=== PATIENT | male | born 1975 | race Caucasian/White ===

== ENCOUNTER 2017-11-17 07:36 | Day surgery (SDC) | payer OTHER, SELFPAY ==
[2017-11-12 15:11] VITALS: BMI 24.0
[2017-11-17] VITALS (9 sets, daily range): BP systolic 113–131; BP diastolic 76–97; PULSE 69–84; RESP 10–16; TEMP 36–36.4; O2SAT 95–100; BMI 24.0
[2017-11-17] MEDS: LACTATED RINGERS 1,000 ML 42 ML IV (08:06)
[2017-11-17] MEDS: MIDAZOLAM 2 MG/2 ML VIAL IV (08:58)
--- NOTE | 2017-11-17 08:59 | PM.PREOP ---
Pre-operative Note Interval Note Pre-op Check: Yes History & Physical Reviewed by Physician and Yes Exam Performed Changes: No
[2017-11-17] MEDS: CEFAZOLIN 2 GM/100 ML FROZ.PIGGY IV (09:06)
--- NOTE | 2017-11-17 09:11 | SUR.PREOP ---
Block start time 0858[] . Monitoring initiated and maintained throughout procedure. Oxygen and medications given per anesthesiologist instructions. Patient remained stable throughout procedure, no adverse reactions noted. Block end time 0902 [].
--- NOTE | 2017-11-17 10:18 | SUR.OPER ---
Beach chair with Maquet shoulder positioner. Lower body on padded OR bed. Head in foam padded head cradle, secured with straps. Non-operative arm secured <90 degrees abduction. Pillow under knees. Safety belt at thigh. Cloth tape over blanket over lower legs.
[2017-11-17] MEDS: BUPIVACAINE 0.25% (PF) VIAL 30 ML INJ (10:31)
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
[2017-11-17] MEDS: fentaNYL 100 MCG/2 ML INJ 50 MCG IV ×2 (11:30→11:35)
[2017-11-17] MEDS: OXYCODONE/ACETAMINOPHEN 5/325 TABLET 1 TAB PO (11:55)
--- NOTE | 2017-11-17 12:29 | P.PCN_ITS ---
Procedures Date/Time Date of procedure: 11/17/17 Time of procedure: 09:02 Nerve Block Time out performed: Yes Local anesthetic used: other (15mL 0.5 opivacaine, 5mL 2* idocaine) Location of anesthetic used: interscalene Amount of anesthesia used (mL): 20 Nerve blocks: brachial plexus (interscalene) Procedure successful: Yes Patient tolerated procedure: well Complications: none Additional comments: Right Brachial plexus nerve block for post operative pain management. Risks and benefits discussed, including bleeding, infection, intravascular injection, nerve damage, block failure. Standard ASA monitors, NC O2. Pt supine. Chloroprep site preparation, sterile technique. Brachial plexus identified with US guidance, traced from supraclavicular to interscalene. 1mL 2% lidocaine skin wheal. 22g x 50mm Pajunk advanced with in- plane US guidance to brachial plexus. Negative aspiration. LA injected with intermittent negative aspiration. Good LA spread noted on US. No pain, no paraesthesia. Pt tolerated procedure well. Vital signs stable.
== END 2017-11-17 12:30 | disposition home or self-care (01) ==
PROVIDERS: Visit Provider Orthopaedic Surgery
PROC: (CPT 24341; principal; 2017-11-17 08:45)
PROC: (CPT 29805; 2017-11-17 08:45)
DX: S43.431A Superior glenoid labrum lesion of right shoulder, initial encounter (principal); M75.21 Bicipital tendinitis, right shoulder; G89.18 Other acute postprocedural pain; W51.XXXA Accidental striking against or bumped into by another person, initial encounter
CPT/HCPCS: 23430; 29822; 64450; J0690; J1100; J2250; J2405; J2704; J3010

== ENCOUNTER → 2020-06-26 12:54 | Outpatient (CLI) | payer OTHER, SELFPAY ==
--- NOTE | 2020-06-26 | DI.MRI.S_ITS ---
PROCEDURE: MR LOWER LEG LT WO CON COMPARISON: [facility], MR, MR ANKLE LT WO CON, 06/26/2020, 14:11. INDICATIONS: Pain in left ankle and posterior lower leg FINDINGS: No marrow signal intensity to suggest fracture or marrow contusion. The muscle signal intensity appears unremarkable. The vessels are within normal limits. There is mild prepatellar and superficial infrapatellar subcutaneous edema. There is also subcutaneous edema and superficial fascial fluid involving the mid anterior lower leg , for example image 12/8. This could represent soft tissue contusion IMPRESSION: Mid anterior lower leg soft tissue subcutaneous edema/contusion. No evidence of fracture seen. Dictated by: Sedrick Moreno M.D. on 06/26/2020 at 15:14 Approved by: Sedrick Moreno M.D. on 06/26/2020 at 15:29
--- NOTE | 2020-06-26 | DI.MRI.S_ITS ---
PROCEDURE: MR ANKLE LT WO CON INDICATIONS: Pain in left posterior leg to ankle joint TECHNIQUE: Noncontrast sagittal T1 spin echo and T2 fast spin echo with fat saturation, axial proton density fast spin echo and T2 fast spin echo with fat saturation, coronal T1 spin echo and T2 fast spin echo with fat saturation through the ankle/hindfoot. COMPARISON: None. FINDINGS: Image quality: Excellent. Bones and joints: No bone marrow contusions or fractures. No hindfoot coalitions. There is minimal T2 hyperintensity along the lateral aspect of the talar dome which could be reactive edema to early joint degeneration, technically nonspecific. No pathologic joint effusions. Medial structures: Posterior tibialis intact. Mild posterior tibialis tenosynovitis. Flexor digitorum longus intact. Flexor hallucis longus tendon intact. The posterior tibial neurovascular bundle appears normal within the tarsal tunnel, without extrinsic mass effect. Deltoid ligament complex appears intact. The spring ligament appears intact. Lateral structures: Anterior talofibular ligament is not well visualized and appears attenuated suggestive of chronic sprain. Calcaneofibular ligament intact. Posterior talofibular ligament intact. Anterior and posterior tibiofibular ligaments appear intact, as is the intermalleolar ligament. Tibiofibular syndesmosis is normal in width at 2 mm or less. Peroneus longus and brevis tendons appear normal. Bony peroneal tubercle and retrotrochlear prominence are normal in size. Sinus tarsi demonstrates normal fatty signal, without edema, fibrosis, or cyst formation. Anterior structures: Tibialis anterior intact. Extensor hallucis longus intact. Extensor digitorum longus tendon intact. Dorsal talonavicular ligament appears intact. Posterior and plantar structures: Achilles tendon is intact. Minimal age-indeterminate medial band plantar fasciitis. No abductor digiti quinti muscle atrophy to suggest [place] neuropathy. IMPRESSION: Chronic appearing sprain of the anterior talofibular ligament. Mild posterior tibialis tenosynovitis. 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 Differential includes subtle osteochondral defect versus small posttraumatic contusion. Age indeterminate minimal medial band plantar fasciitis. Dictated by: Sedrick Moreno M.D. on 06/26/2020 at 15:29 Approved by: Sedrick Moreno M.D. on 06/26/2020 at 15:35
== END ==
PROVIDERS: PCP Student in an Organized Health Care Education/Training Program; Referring Provider Student in an Organized Health Care Education/Training Program; Visit Provider Student in an Organized Health Care Education/Training Program
DX: M79.672 Pain in left foot (principal); R60.0 Localized edema
CPT/HCPCS: 73718; 73721